=== PATIENT | female | born 1970 ===

== ENCOUNTER → 2020-10-14 07:53 | Outpatient (CLI) | payer OTHER, SELFPAY ==
--- NOTE | 2020-10-14 | DI.MRI.S_ITS ---
PROCEDURE: MR ANGIO NECK W CON INDICATIONS: Other abnormal involuntary movements TECHNIQUE: Axial and sagittal TruFISP through the neck. Coronal dynamic MRA after the administration of contrast in the arterial and venous phases, with rotating 3-dimensional maximum intensity projection (MIP) reformats constructed from subtraction images. COMPARISON: [facility], , MR ANGIO HEAD WO CON, 10/14/2020, 8:29. FINDINGS: Image quality: Excellent. Carotid system: Great vessels demonstrate a conventional anatomy as they arise from the aortic arch. The origins of the common carotid arteries appear normal. The calibers and courses of the common carotid arteries are likewise normal. The carotid bifurcations appear normal bilaterally. The internal carotid arteries are widely patent up to the [place]. Posterior circulation: The origins of the vertebral arteries are unremarkable. The more superior portions of the vertebral arteries demonstrate normal course and caliber. Vertebral arteries join to form a normal appearing basilar artery. Miscellaneous: Subclavian arteries are patent throughout. Pre-contrast images through the neck demonstrate no soft tissue abnormalities. IMPRESSION: 1. No internal carotid artery stenosis bilaterally. 2. Patent bilateral vertebral arteries. Any quantitative measurements of stenosis were performed using NASCET criteria. Dictated by: Angel Mancera M.D. on 10/14/2020 at 10:09 Approved by: Angel Mancera M.D. on 10/14/2020 at 10:10
--- NOTE | 2020-10-14 | DI.MRI.S_ITS ---
PROCEDURE: MR ANGIO HEAD WO CON INDICATIONS: Other abnormal involuntary movements TECHNIQUE: Noncontrast axial 3-D [id number] MR angiogram, with 3-dimensional maximum intensity projection (MIP) reformats of the internal carotid arteries and posterior circulation then performed. COMPARISON: None. FINDINGS: Image quality: Excellent. Anterior circulation: Intracranial internal carotid arteries demonstrate normal size and intraluminal flow signal. The flow within the paired anterior cerebral arteries is normal and symmetric. The flow within the middle cerebral arteries is normal and symmetric. The anterior communicating artery is seen. No stenoses, occlusions, or aneurysms. Posterior circulation: Visualized portions of the vertebral arteries demonstrate normal caliber, and join to form a normal appearing basilar artery. The flow within the posterior cerebral arteries is normal and symmetric. No stenoses, occlusions, or aneurysms. IMPRESSION: Negative cerebral MR angiography examination. Dictated by: Angel Mancera M.D. on 10/14/2020 at 10:05 Approved by: Angel Mancera M.D. on 10/14/2020 at 10:06
--- NOTE | 2020-10-14 | DI.MRI.S_ITS ---
PROCEDURE: MR CERVICAL SPINE WO CON INDICATIONS: Other abnormal involuntary movements TECHNIQUE: Noncontrast sagittal T1 spin echo and T2 fast spin echo, sagittal STIR, foraminal oblique sagittal T2 fast spin echo, and axial gradient echo or T2 fast spin echo through the cervical spine. COMPARISON: None. FINDINGS: Image quality: Excellent. Alignment and Curvature: There is loss of normal cervical lordosis. There is mild grade 1 retrolisthesis of C6 on C7. Bone Marrow: Marrow demonstrates normal overall signal. Mild reactive signal within the endplates adjacent to the C4-C5 and C6-C7 intervertebral discs. Spinal Cord: Visualized spinal cord has normal size and signal. No cerebellar tonsillar herniation. Paraspinous Soft Tissues: No paravertebral masses. Prevertebral soft tissues are normal in thickness. C2-C3: Moderate disc desiccation. No significant canal, or foraminal stenosis. C3-C4: Moderate disc desiccation. No significant canal, or foraminal stenosis. C4-C5: Moderate disc desiccation. Mild diffuse disc bulge. Mild right and moderate left facet and uncovertebral hypertrophy. Mild canal stenosis. Moderate left and mild right foraminal stenosis. C5-C6: Moderate disc height loss and desiccation. Mild diffuse disc bulge. Mild left greater than right facet and uncovertebral hypertrophy. Mild canal stenosis. Moderate right and severe left foraminal stenosis. Left C6 nerve root compression. C6-C7: Moderate disc height loss and desiccation. Mild diffuse disc bulge. Mild facet and uncovertebral hypertrophy. Mild canal stenosis. Mild bilateral foraminal stenosis. C7-T1: Mild disc desiccation and diffuse disc bulge. Mild canal stenosis. No foraminal stenosis. IMPRESSION: 1. Multilevel degenerative disc and facet disease, as well as uncovertebral hypertrophy. 2. Mild multilevel canal stenosis. 3. Multilevel foraminal stenoses, worst at C5-C6 where there is associated intraforaminal nerve root compression. Recommend correlation with clinical symptoms to ascertain relevance of this finding. Dictated by: Angel Mancera M.D. on 10/14/2020 at 10:06 Approved by: Angel Mancera M.D. on 10/14/2020 at 10:09
== END ==
PROVIDERS: PCP Nurse Practitioner; Referring Provider Nurse Practitioner; Visit Provider Psychiatry & Neurology Neurology
DX: R25.8 Other abnormal involuntary movements (principal); M62.89 Other specified disorders of muscle; M48.02 Spinal stenosis, cervical region; M50.321 Other cervical disc degeneration at C4-C5 level
CPT/HCPCS: 70544; 70548; 72141

== ENCOUNTER 2020-10-14 09:22 | Emergency (ER) | payer OTHER, SELFPAY ==
[2020-10-14 09:27] VITALS: BP 141/78; PULSE 62; RESP 17; TEMP 36.9; O2SAT 100
[2020-10-14] MEDS: methylPREDNISolone 125 MG/2 ML VIAL IV (09:34)
--- NOTE | 2020-10-14 09:42 | ED.ALLEREA ---
HPI - Allergic Reaction General Chief complaint: Allergic Reaction Stated complaint: Allergic reaction Time Seen by Provider: 10/14/20 09:27 Source: patient Mode of arrival: Wheelchair Limitations: no limitations History of Present Illness HPI narrative: The patient is a 50-year-old female with history of allergic reaction to shellfish. She was getting an MRI with contrast of her carotids this morning afterward she started developing some hives and rash. She received 50 mg of Benadryl prior to arrival. She has some swelling of her lip but has no difficulty breathing or tongue swelling. MD complaint: allergic reaction, hives and facial swelling Onset (ago): minute(s) Exposure: medication Symptoms: rash, itching and facial swelling Related Data Home Medications Medication Instructions Recorded Confirmed No Known Home Medications 10/14/20 10/14/20 Allergies Allergy/AdvReac Type Severity Reaction Status Date / Time Gadolinium-Containing Allergy Intermediate Hives Verified 10/14/20 09:30 Contrast Medi shrimp Allergy Intermediate Hives Verified 10/14/20 09:30 Review of Systems Review of Systems Narrative: GENERAL: Denies chills, fatigue, malaise, fever, sweats, travel HEENT: Denies sinus pain, ear pain, sore throat, difficulty swallowing, neck pain RESPIRATORY: Denies dyspnea, cough, wheezing, hemoptysis, sputum. CARDIOVASCULAR: Denies chest pain, palpitations, orthopnea, edema GASTROINTESTINAL: Denies nausea, vomiting, abdominal pain, diarrhea, constipation, melena. : Denies dysuria, frequency, incontinence, hematuria, urinary retention, flank pain. MUSCULOSKELETAL: Denies weakness, joint pain, or bony pain SKIN: See HPI NEUROLOGIC: Denies weakness, dizziness, headache, numbness, change in speech, confusion PSYCHIATRIC: No concerning psychosocial issues. 12 point review of systems is negative except for those stated above and HPI Patient History Substance Use Type: does not use Exam Initial Vital Signs Initial Vital Signs: Vital Signs Temperature 98.4 F 10/14/20 09:27 Pulse Rate 62 10/14/20 09:27 Respiratory Rate 17 10/14/20 09:27 Blood Pressure 141/78 H 10/14/20 09:27 Pulse Oximetry 100 10/14/20 09:27 GENERAL: Well-appearing, well-nourished and in no acute distress. HEENT: Head atraumatic,EOMI, pupils reactive, mild left-sided facial swelling no tongue lip swelling CARDIOVASCULAR: Regular rate and rhythm without murmurs, rubs or gallops. RESPIRATORY: Breath sounds equal bilaterally, no wheezes rales or rhonchi. ABDOMEN: Soft, nontender. Normoactive bowel sounds all 4 quadrants. No guarding or rebound. EXTREMITIES: Normal range of motion, no clubbing or edema. Neurovascularly intact NEUROLOGICAL: Alert and oriented x4.Normal gait and speech. SKIN: Rash hives Course Orders Ordered: Discontinued Medications Methylprednisolone (Methylprednisolone 125 Mg/2 Ml Vial) 125 mg IV NOW ONE Stop: 10/14/20 09:28 Last Admin: 10/14/20 09:34 Dose: 125 mg Documented by: MATT Vital Signs Vital signs: Vital Signs - 8 hr 10/14/20 09:27 10/14/20 10:02 10/14/20 10:45 Temperature 98.4 F Pulse Rate 62 54 L 50 L Respiratory Rate 17 14 17 Blood Pressure 141/78 H 118/69 Pulse Oximetry 100 99 99 MDM - Allergic Reaction MDM Narrative Medical decision making narrative: Patient monitored in the ED overall had improvement in facial swelling no sign of anaphylaxis no need for epinephrine. She felt ready and able to go home after Benadryl and Solu-Medrol Discharge Plan Departure Patient Disposition: Home Clinical Impression: Allergic reaction Instructions: DI for Anaphylaxis Activity Restrictions/Additional Instructions: *You have been diagnosed with allergic reaction *What to do: At this time you do not have any severe anaphylactic reactions. I suspect he will continue to improve *Continue to take medications as directed Benadryl 25-50 mg every 6 hours if needed for rash *Follow up with your primary care provider in 2-3 days *Return to ER if you should have tongue swelling lip swelling difficulty breathing or any new, worsening or concerning symptoms Prescriptions: No Action No Known Home Medications RF: 0 Referrals: Kaylan Soler ARNP [Primary Care Provider] -
[2020-10-14 10:02] VITALS: PULSE 54; RESP 14; O2SAT 99
[2020-10-14 10:45] VITALS: BP 118/69; PULSE 50; RESP 17; O2SAT 99
--- NOTE | 2020-10-14 10:45 | PC.NURSE ---
Patient reports symptoms completed improved. No hives noted, swelling to eyelids and upper lip have decreased and are only minimally noticeable.
== END 2020-10-14 10:46 | disposition home or self-care (01) ==
PROVIDERS: Emergency Provider Emergency Medicine; PCP Nurse Practitioner
DX: T78.40XA Allergy, unspecified, initial encounter (principal); R21 Rash and other nonspecific skin eruption; R25.8 Other abnormal involuntary movements; M62.89 Other specified disorders of muscle; M48.02 Spinal stenosis, cervical region; M50.321 Other cervical disc degeneration at C4-C5 level
CPT/HCPCS: 70544; 70548; 72141; 96374; 99281; 99284; J2930